=== PATIENT | female | born 2000 | race Two or more races ===

== ENCOUNTER 2022-01-04 13:21 | Emergency (ER) | payer OTHER ==
[~2022-01-04] VITALS: Ht 172.7 cm; Wt 51.7 kg
== END 2022-01-04 21:13 | disposition home or self-care (01) ==
LOC: ER 13:21
DX: L25.9 Unspecified contact dermatitis, unspecified cause (principal); R21 Rash and other nonspecific skin eruption

== ENCOUNTER 2022-01-19 05:24 | Emergency (ER) | payer OTHER ==
[~2022-01-19] VITALS: Ht 172.7 cm; Wt 52.2 kg
== END 2022-01-19 12:50 | disposition home or self-care (01) ==
LOC: ER 05:24
DX: R10.2 Pelvic and perineal pain (principal)

== ENCOUNTER 2022-03-13 08:26 | Emergency (ER) | payer OTHER ==
[~2022-03-13] VITALS: Ht 172.7 cm; Wt 53.1 kg
== END 2022-03-13 11:56 | disposition home or self-care (01) ==
LOC: ER 08:26
DX: B34.9 Viral infection, unspecified (principal); Z20.822 Contact with and (suspected) exposure to COVID-19

== ENCOUNTER 2022-09-17 21:50 | Emergency (ER) | payer OTHER ==
[~2022-09-17] VITALS: Ht 172.7 cm; Wt 59.0 kg
[2022-09-18] MEDS ORDERED: KETO10TA2 PO (03:35)
== END 2022-09-18 04:33 ==
LOC: ER 21:50
DX: S99.811A Other specified injuries of right ankle, initial encounter (principal); S89.91XA Unspecified injury of right lower leg, initial encounter; S89.90XA Unspecified injury of unspecified lower leg, initial encounter; W18.39XA Other fall on same level, initial encounter; Y93.02 Activity, running; Y92.89 Other specified places as the place of occurrence of the external cause; Y99.8 Other external cause status

== ENCOUNTER 2022-09-19 16:18 | Emergency (ER) | payer OTHER ==
[~2022-09-19] VITALS: Ht 172.7 cm; Wt 59.0 kg
[~2022-09-19 16:18] MED LIST: KETO10TA2 PO
== END 2022-09-19 21:40 | disposition home or self-care (01) ==
LOC: ER 16:18
DX: S99.921A Unspecified injury of right foot, initial encounter (principal); S89.91XA Unspecified injury of right lower leg, initial encounter; S99.911A Unspecified injury of right ankle, initial encounter; X58.XXXA Exposure to other specified factors, initial encounter; Y93.9 Activity, unspecified; Y92.9 Unspecified place or not applicable; Y99.9 Unspecified external cause status

== ENCOUNTER 2022-09-21 11:32 | Outpatient (CLI) | payer OTHER | END 2022-09-21 11:43 | disposition home or self-care (01) | LOC: MRI 11:32 | DX: M25.571 Pain in right ankle and joints of right foot (principal); M25.561 Pain in right knee | CPT/HCPCS: 73721 ==

== ENCOUNTER 2022-09-26 09:41 | Outpatient (CLI) | payer OTHER | END 2022-09-26 09:56 | disposition home or self-care (01) | LOC: MRI 09:41 | DX: S93.402A Sprain of unspecified ligament of left ankle, initial encounter (principal) | CPT/HCPCS: 73721 ==

== ENCOUNTER 2023-03-05 14:32 | Emergency (ER) | payer OTHER ==
[~2023-03-05] VITALS: Ht 160 cm; Wt 54.4 kg
[2023-03-05] MEDS ORDERED: ZYRTEC10 MG PO (18:08)
[2023-03-05] MEDS ORDERED: QC TUSSIN DM L118 ML PO (18:08)
== END 2023-03-05 18:18 | disposition home or self-care (01) ==
LOC: ER 14:32
DX: J00 Acute nasopharyngitis [common cold] (principal); Z20.822 Contact with and (suspected) exposure to COVID-19

== ENCOUNTER 2023-03-07 18:29 | Emergency (ER) | payer OTHER ==
[~2023-03-07] VITALS: Ht 172.7 cm; Wt 59.9 kg
[~2023-03-07 18:29] MED LIST changes: +QC TUSSIN DM L118 ML PO; +ZYRTEC10 MG PO
[2023-03-07 21:33] LABS: HEMATOCRIT 38.2 % (36.0-45.00); HEMOGLOBIN 13.2 g/dL (12.0-15.00); MEAN CELL VOLUME 86.3 fL (80.00-100.00); MEAN CORPUSCULAR HEMOGLOBIN 29.7 pg (27.00-32.0); MEAN CORPUSCULAR HGB CONC 34.5 g/dl (32.0-36.0); PLATELET COUNT 270 K/uL (150-450); RED BLOOD COUNT 4.43 M/uL (4.00-6.00); RED CELL DISTRIBUTION WIDTH 12.3 % (11.5-14.5)
== END 2023-03-08 00:06 | disposition home or self-care (01) ==
LOC: ER 18:29
PROVIDERS: Emergency Medicine
DX: R05.9 Cough, unspecified (principal); Z20.822 Contact with and (suspected) exposure to COVID-19

== ENCOUNTER 2023-05-19 03:50 | Emergency (ER) | payer OTHER ==
[~2023-05-19] VITALS: Ht 170.2 cm; Wt 57.6 kg
[2023-05-19] MEDS ORDERED: KETOROLAC TROMETHAMINE 60 MG VIAL IM STA (05:00)
[2023-05-19] MEDS ORDERED: ACETAMINOPHEN 500 MG GEL..CAP PO STA (05:01)
[2023-05-19 05:17] LABS: HEMATOCRIT 36.6 % (36.0-45.00); HEMOGLOBIN 12.8 g/dL (12.0-15.00); MEAN CELL VOLUME 85.7 fL (80.00-100.00); PLATELET COUNT 275 K/uL (150-450); RED BLOOD COUNT 4.27 M/uL (4.00-6.00); RED CELL DISTRIBUTION WIDTH 12.4 % (11.5-14.5)
[2023-05-19 05:44] LABS: PH,URINE 6.5 (5.0-8.0); URINE APPEARANCE Clear; URINE BILIRRUBIN Negative (NEGATIVE); URINE BLOOD Negative; URINE COLOR Yellow; URINE GLUCOSE Negative (NEGATIVE); URINE LEUKOCYTE Trace; URINE NITRATE Negative; URINE PROTEIN Negative (NEGATIVE)
[2023-05-19 05:47] LABS: URINE BACTERIA 1902.4 uL (0.0-1933); URINE EPITHELIAL CELLS 45.1 uL (0.0-38.8); URINE RBC 2.5 uL (0.0-20.8); URINE WBC 20.8 uL (0.0-23.2)
== END 2023-05-19 06:08 | disposition home or self-care (01) ==
LOC: ER 03:50
DX: E28.2 Polycystic ovarian syndrome (principal)

== ENCOUNTER 2023-09-03 16:22 | Emergency (ER) | payer OTHER ==
[~2023-09-03] VITALS: Ht 167.6 cm; Wt 56.2 kg
[2023-09-03] MEDS ORDERED: FAMOtidine 10 MG/ML (4ML VIAL) IV ONE (18:00)
[2023-09-03] MEDS ORDERED: ONDANSETRON HCL 2 MG/ML VIAL IV ONE (18:00)
[2023-09-03] MEDS ORDERED: 0.9 % SODIUM CHLORIDE 500 ML IV ONE (18:00)
[2023-09-03 18:33] LABS: HEMATOCRIT 38.2 % (36.0-45.00); HEMOGLOBIN 13.4 g/dL (12.0-15.00); MEAN CELL VOLUME 86.7 fL (80.00-100.00); MEAN CORPUSCULAR HEMOGLOBIN 30.4 pg (27.00-32.0); PLATELET COUNT 263 K/uL (150-450); RED CELL DISTRIBUTION WIDTH 12.3 % (11.5-14.5)
[2023-09-03 19:02] LABS: ALBUMIN 3.7 gm/dL (3.4-5.0); ALKALINE PHOSPHATASE 61 U/L (50-136); ALT/SGPT 19 U/L (12-78); ANION GAP 5 (10.0-20.0); AST/SGOT 11 U/L (15-37); BILIRUBIN TOTAL 0.48 mg/dL (0.3-1.2); BLOOD UREA NITROGEN 11 mg/dL (7-18); BUN CREA RATIO 14 (7.0-25.0); CALCIUM 8.8 mg/dL (8.5-10.1); CARBON DIOXIDE 30 mEq/L (21-32); CHLORIDE 110 mmol/L (98-107); CREATININE SERUM 0.77 mg/dL (0.55-1.02); GLOBULINA 3.6 G/DL (2.4-3.5); GLUCOSE FASTING 68 mg/dL (65-100); HCG QUANTITATIVE < 1 mUI/mL (1-3); OSMOLALITY SERUM 279 MOSM/KG (275-295); POTASSIUM 3.87 mEq/L (3.5-5.1); SODIUM 141 mmol/L (136-145); TOTAL PROTEIN 7.3 gm/dL (6.4-8.2)
[2023-09-03 21:21] LABS: URINE APPEARANCE Clear; URINE BILIRRUBIN Negative (NEGATIVE); URINE BLOOD Negative; URINE COLOR Yellow; URINE GLUCOSE Negative (NEGATIVE); URINE LEUKOCYTE Negative; URINE NITRATE Negative; URINE PROTEIN Negative (NEGATIVE); URINE UROBILINOGEN 0.2 E.U./dl
[2023-09-03 21:25] LABS: URINE BACTERIA 3568.1 uL (0.0-1933); URINE EPITHELIAL CELLS 72.4 uL (0.0-38.8); URINE RBC 2.1 uL (0.0-20.8); URINE WBC 5.7 uL (0.0-23.2)
[2023-09-03] MEDS ORDERED: KETOROLAC TROMETHAMINE 60 MG VIAL IM ONE (23:45)
[2023-09-03] MEDS ORDERED: BACTRIM DS TAB1 EACH PO (23:53)
== END 2023-09-04 00:14 | disposition home or self-care (01) ==
LOC: ER 16:23
PROVIDERS: General Practice
DX: N39.0 Urinary tract infection, site not specified (principal); R10.2 Pelvic and perineal pain; R10.9 Unspecified abdominal pain
CPT/HCPCS: 36415; 74177; 76830; Q9965

== ENCOUNTER 2024-06-19 10:45 | Emergency (ER) | payer OTHER ==
[~2024-06-19] VITALS: Ht 170.2 cm; Wt 61.7 kg
[~2024-06-19 10:45] MED LIST changes: +BACTRIM DS TAB1 EACH PO
[2024-06-19] MEDS ORDERED: KETOROLAC TROMETHAMINE 60 MG VIAL IM ONE ×2 (11:15→11:32)
[2024-06-19] MEDS ORDERED: DEXAMETHASONE SODIUM PHOSPHATE 4 MG/ML VIAL IM ONE (11:15)
[2024-06-19] MEDS ORDERED: DEXAMETHASONE SODIUM PHOSPHATE 4 MG/ML VIAL ONE (11:32)
[2024-06-19 15:41] LABS: COVID-19 AG NEGATIVE (NEGATIVE)
[2024-06-19 15:46] LABS: INFLUENZA A AG NEGATIVE (NEGATIVE)
== END 2024-06-19 16:20 | disposition home or self-care (01) ==
LOC: ER 10:46
PROVIDERS: General Practice
DX: M94.0 Chondrocostal junction syndrome [Tietze] (principal); Z20.822 Contact with and (suspected) exposure to COVID-19
CPT/HCPCS: 36415; 96372; 99282; J1100; J1885